=== PATIENT | female | born 1990 | race Caucasian/White ===

== ENCOUNTER 2022-01-24 19:36 | Inpatient (IN) ==
[2022-01-24] MEDS ORDERED: OXYTOCIN 30 UNITS/500 ML BAG IV PRN ×2 (19:48)
[2022-01-24] MEDS ORDERED: PENICILLIN G POTASSIUM 6 MU in DEXTROSE 5% 250 ML IV ONE (20:00)
--- NOTE | 2022-01-24 20:06 | History & Physical Report ---
Date of Service January 24, 2022 Assessment & Plan (1) Insulin controlled gestational diabetes mellitus (GDM) during : Plan: Admit to L&D. Will place on EFM/toco. OK to ambulate, if no active ctx will recommend begin pitocin. Penicillin for GBS+, patient with 2 siblings with an unknown reaction to PCN, patient herself has never had a reaction to PCN. Agreeable to use this, as it is the recommended treatment for GBS+. Check glucose now, then hourly when in active labor. (2) Supervision of normal intrauterine in primigravida: History of Present Illness Chief Complaint: rupture of membranes Primary Care Provider: Aj Arnold, DO 31yo @ 38 [birth year], presented to office today after gush of clear fluid at 4:15p. +FM, no vaginal bleeding. No reg ctx. Examined by Dr Henderson in office, found to be grossly ruptured. /-2. Obesity (BMI 40 and higher @ beginning of ) *Growth US @ 32wks *Weekly NSTs @ 34wks Covid Vaccine #1 08/29/20 (Pfizer) Covid Vaccine #2 09/19/20 Has had booster Flu shot given 07/11/21 SB GDM on insulin *Wkly NSTs @32wks and Twice wkly @36wks *Serial growth US @28wks *Deliver by EDC - IOL 02/06 GBS Positive *treat in labor Allergies Allergy/AdvReac Type Severity Reaction Status Date / Time ibuprofen Allergy Unknown throat Verified 01/24/22 16:52 swelling Home Medications Medication Instructions Recorded Confirmed Type vits no.130-ferrous fum 1 tab PO DAILY #30 tab 10/01/20 01/24/22 Rx 27 mg iron-folic acid 800 mcg tablet ( Vitamin) acetone (urine) test (Ketone Urine #50 ea 12/05/21 01/24/22 Rx Test) insulin NPH isoph U-100 human 100 8 unit SUBCUT .at bed time #15 ml 12/05/21 01/24/22 Rx unit/mL (3 mL) subcutaneous pen (Novolin N Flexpen) pen needle, diabetic 32 gauge x #100 ea 12/05/21 01/24/22 Rx 5/32" (BD Ultra-Fine Clemencia Pen Needle) Patient History Medical History Dyspareunia Malpositioned IUD Migraine Surgical History No pertinent past surgical history Family History Mother Ovarian cancer Diabetes Aunt Diabetes Grandmother (Maternal) Diabetes Osteoporosis Stroke Sister Hypertension Denies family history of Prostate cancer Myocardial infarction Breast cancer Colorectal cancer Social History Smoking Status: Never smoker Second Hand Exposure: No; Hx Alcohol Use: No Hx Substance Use: No Preferred Language: Wolof Visual Impairment: No Limitations Hearing Ability: Normal marital status: marital status details: Joby (31) [phone] Current Living Situation: Spouse Current Living Situation Comment: lives with spouse, 2 dogs, 1 cat, spouse to change litter. 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 How many Children do You have: 0 Feels Safe at Home: Yes Childhood Exposure to Second-Hand Smoke: No caffeine: Yes Dental Care, Regularly: Yes Physical Activity Frequency: 3-4 Times per Week Seatbelt Use: always Sunscreen Use: Yes Review of Systems All systems reviewed & are unremarkable except as noted in HPI & below Physical Exam Physical Exam: FHT/toco - not yet on monitor SVE 2/50/-3, soft/mid, EFW 7-8 Constitutional: WD/WN, vitals as above Respiratory: normal respiratory effort, lungs clear to auscultation no respiratory distress Cardiovascular: Rate/Rhythm: regular rate and regular rhythm Gastrointestinal (Abdomen): Inspection/Auscultation: abdomen normal to inspection Percussion/Palpation: abdomen soft; abdomen nontender Gravid. No s/s chorio or abruption. Skin: no rashes, warm and dry Psychiatric: A+Ox3, euthymic affect Coding Level of Care Code None Diagnoses Insulin controlled gestational diabetes mellitus (GDM) during O24.414 Supervision of normal intrauterine in primigravida Z34.00
[2022-01-24 20:19] LABS: Hematocrit (blood only) 38.9 % (37-47); Hemoglobin 13.4 g/dL (12.0-16.0); Mean Corpuscular Hemoglobin 27.8 pg (25-34); Mean Corpuscular Hgb Conc 34.4 g/dL (32-36); Mean Corpuscular Volume 80.7 fL (80-100); Mean Platelet Volume 8.9 fL (7.4-10.4); Platelet Count 392 K/uL (130-400); RDW Coefficient of Variation 14.2 % (11.5-14.5); RDW Standard Deviation 41.6 fL (36.4-46.3); Red Blood Count 4.82 M/uL (4.2-5.4); White Blood Count 11.51 K/uL (4.8-10.8)
[2022-01-25] MEDS: PENICILLIN G POTASSIUM 3 MU in DEXTROSE 5% 100 ML IV PRN ×5 (00:54→17:03)
[2022-01-25] MEDS: LACTATED RINGER'S 1,000 ML IV PRN ×3 (00:59→15:33)
--- NOTE | 2022-01-25 03:17 | Labor Progress Brief Note ---
Date of Service January 25, 2022 Subjective Patient had been on pitocin as soon as nursing staffing levels allowed safe administration of pit (approx midnight). Then heart decel at approx 2:30 and pitocin turned off to allow for resuscitation. Baby has recovered fully, with FHT Cat 1. Will restart pitocin at this time. Patient is uncomfortable, has "the shakes" and vomited. Having pain with ctx. Cervical exam was very painful. Discussed possibility of epidural to allow pelvis to relax and obtain pain control. SVE 2/50/-3. Exam challenging - very painful. Nursing voiced concern re: position, seemed to be high on abdomen. I performed limited bedside ultrasound, fetus is cephalic. Will restart pitocin, patient will consider epidural. Assessment & Plan Admission and Anticipated Discharge Date Admission Date: January 24, 2022 Results & Data ([facility]) Vital Signs (Past 12 Hours) Vital Signs Temp Pulse Resp BP Pulse Ox 01/25/22 03:09 83 98 01/25/22 03:04 93 H 98 01/25/22 02:59 71 96 01/25/22 02:54 80 97 01/25/22 02:49 76 97 01/25/22 02:44 78 98 01/25/22 02:39 95 H 97 01/25/22 02:34 94 H 97 01/25/22 02:30 129 H 142/93 H 01/25/22 01:31 36.4 C L 18 01/25/22 01:30 85 159/89 H 01/24/22 23:57 36.7 C 18 01/24/22 21:47 80 137/81 01/24/22 20:45 92 H 147/93 H 01/24/22 20:44 98 H 147/91 H 01/24/22 20:35 93 H 147/84 H 01/24/22 20:16 36.8 C 18 Coding Level of Care Code None
[2022-01-25] MEDS ORDERED: ePHEDrine sulfate 50 MG/ML AMP ONE (03:43)
[2022-01-25] MEDS ORDERED: fentaNYL citrate 100 MCG/2 ML VIAL ONE (03:44)
[2022-01-25] MEDS ORDERED: fentaNYL 2MCG/ML ROPIVACAINE 1.25MG/ML 100 ML BAG EPI ONE (03:44)
[2022-01-25] MEDS ORDERED: BUPIVACAINE 0.25% 30 ML VIAL ONE (03:44)
[2022-01-25] MEDS ORDERED: SODIUM CHLORIDE 0.9% INJ 10 ML VIAL ONE (03:44)
[2022-01-25] MEDS ORDERED: ONDANSETRON INJ 2 MG/ML 2 ML VIAL IV PRN (04:43)
[2022-01-25] MEDS ORDERED: NALOXONE HCL 0.4 MG/1 ML VIAL/CARP IV PRN (04:43)
[2022-01-25] MEDS ORDERED: ePHEDrine sulfate 50 MG/ML AMP IV PRN (04:43)
[2022-01-25] MEDS ORDERED: diphenhydrAMINE 50 MG/ML VIAL IV PRN (04:43)
[2022-01-25] MEDS ORDERED: NALOXONE HCL 1 MG in SODIUM CHLORIDE 0.9% 1000ML 1,000 ML IV PRN (04:43)
[2022-01-25] MEDS ORDERED: NALBUPHINE HCL INJ 10 MG/ML AMP IV PRN (04:43)
--- NOTE | 2022-01-25 04:45 | Anesthesiology Consultation ---
Date of Service January 25, 2022 Assessment & Plan (1) Encounter for pre-operative examination: Chart Review Chart Review: Patient NOT seen in Pre Admission Testing and Acceptable Risk for Labor Epidural Consults Requested none History Height/Weight Height: 5 ft 3 in Weight: 104.668 kg Allergies Allergy/AdvReac Type Severity Reaction Status Date / Time ibuprofen Allergy Unknown throat Verified 01/24/22 16:52 swelling shellfish derived Allergy Rash Verified 01/25/22 04:21 Medications Home Medications Medication Instructions Recorded Confirmed Last Taken vits no.130-ferrous fum 1 tab PO DAILY #30 tab 10/01/20 01/24/22 Unknown 27 mg iron-folic acid 800 mcg tablet ( Vitamin) acetone (urine) test (Ketone Urine #50 ea 12/05/21 01/24/22 Unknown Test) insulin NPH isoph U-100 human 100 8 unit SUBCUT .at bed time #15 ml 12/05/21 01/24/22 01/24/22 unit/mL (3 mL) subcutaneous pen 2300 (Novolin N Flexpen) pen needle, diabetic 32 gauge x #100 ea 12/05/21 01/24/22 Unknown 32" (BD Ultra-Fine Clemencia Pen Needle) Active Medications Generic Name Dose Route Start Last Admin Trade Name Freq PRN Reason Stop Dose Admin Oxytocin 30 units in 500 mls @ 3 mls/hr 01/24/22 19:48 01/25/22 04:00 Pitocin IV 01/26/22 19:47 0.18 units/hr .Q24H PRN 3 mls/hr Labor Induction/Augmentation Titration Protocol 0.18 UNITS/HR Lactated Ringer's 1,000 mls @ 125 mls/hr 01/24/22 19:48 01/25/22 04:47 Lr IV 01/26/22 19:47 125 mls/hr .Q8H PRN Administration L&D Protocol Protocol Penicillin G Potassium 3 mu/ 106 mls @ 100 mls/hr 01/24/22 22:48 01/25/22 04:52 Dextrose IV 02/03/22 22:47 100 mls/hr Q4H PRN Administration GBS(+) Until Delivery Past Medical History Medical History Dyspareunia Malpositioned IUD Migraine Past Family History Family History Mother Ovarian cancer Diabetes Aunt Diabetes Grandmother (Maternal) Diabetes Osteoporosis Stroke Sister Hypertension Denies family history of Prostate cancer Myocardial infarction Breast cancer Colorectal cancer Past Surgical History Surgical History No pertinent past surgical history Past Anesthesia History No Hx of Anesthesia Complications and No Family Hx of Anesthesia Complications History of PONV No Hx of PONV and No Hx of Motion Sickness Social History Smoking Status: Never smoker Hx Alcohol Use: No Alcohol type: beer, wine and hard liquor Hx Substance Use: No substance use type: does not use Physical Exam Vital Signs Last Vital Signs Temp 37.0 C 01/25/22 03:31 Pulse 97 H 01/25/22 05:11 Resp 18 01/25/22 01:31 BP 136/75 01/25/22 05:11 Pulse Ox 94 01/25/22 05:10 Testing Laboratory Results 01/24/22 20:02 01/24/22 20:32 POC Glucose 102 H
[2022-01-25] MEDS: fentaNYL 2MCG/ML ROPIVACAINE 1.25MG/ML 100 ML BAG EPI PRN ×2 (12:05→17:19)
[2022-01-25] MEDS ORDERED: D5W AND LACTATED RINGERS 1,000 ML IV SCH (16:00)
[2022-01-25] MEDS ORDERED: NURSING L&D Epidural Breakthrough Pain Update ONE (16:43)
--- NOTE | 2022-01-25 17:57 | Delivery Summary ---
Vaginal Delivery Summary Date of Service January 25, 2022 Vaginal Delivery Summary Patient had been induced by Dr. Ferguson the night before for spontaneous rupture of membranes she initially had slow progression an IUPC was placed and then she rapidly progressed from 2 cm to fully dilated with Pitocin. States she pushed she delivered a baby girl live vigorous female infant in occiput anterior position at of the head the loose nuchal cord was passed over the head and fluid was clear gentle traction the baby with no excessive force live vigorous female cord clamped and cut cord gases obtained cord blood obtained placenta removed with gentle traction IV Pitocin started second-degree tear repaired with 3-0 Vicryl sponge and instrument counts correct estimated blood loss 250 mL
--- NOTE | 2022-01-25 18:01 | Anesthesia Procedure Note ---
Date of Service January 25, 2022 Anesthesia Post Epidural Note Vital Signs Vital Signs: Temp Pulse Resp BP Pulse Ox 37.0 C 100 H 16 137/88 97 01/25/22 15:17 01/25/22 17:55 01/25/22 16:46 01/25/22 17:55 01/25/22 17:40 Pain Intensity Bilateral Abdomen: Pain Intensity: 3 Notes Mental Status: alert / awake / arousable and participated in evaluation Nausea / Vomiting: adequately controlled Pain: adequately controlled Airway Patency, RR, SpO2: stable & adequate BP & HR: stable & adequate Hydration State: stable & adequate Neuraxial Anesthesia: was administered and sensory block is resolving Anesthetic Complications: no major complications apparent Epidural: Removed without complications and With tip intact
[2022-01-25 18:12] LABS: Base Excess Cord Arterial Bld -3.4 mEq/L (-9-1.8); CO2 Cord Arterial Blood 49 mmHg (39.1-73.5); Cord Venous Blood HCO3 20 mmol/L (18.4-26.8); Cord Venous Blood PCO2 31 mmHg (30.4-57.2); Cord Venous Blood PO2 40 mmHg (14.1-43.3); Cord Venous Blood pH 7.41 (7.20-7.44); HCO3 Cord Arterial Blood 24 mmol/L (19.7-28.5); O2 Saturation Cord Venous Bld 78.8 % (<68); Oxygen Sat Cord Arterial Blood < 60.0 % (<60); PO2 Cord Arterial Blood 19 mmHg (4.1-31.7); pH Cord Arterial Blood 7.29 (7.1-7.38)
[2022-01-25] MEDS ORDERED: bisacodyL 10 MG SUPP PR PRN (18:43)
[2022-01-25] MEDS ORDERED: oxyCODONE/ACETAMINOPHEN 5mg/325mg TAB PO PRN (18:43)
[2022-01-25] MEDS ORDERED: HYDROCORTISONE ACETATE 25 MG SUPP PR PRN (18:43)
[2022-01-25] MEDS ORDERED: IBUPROFEN 600 MG TAB PO PRN (18:43)
[2022-01-25] MEDS ORDERED: OXYTOCIN 30 UNITS/500 ML BAG IV PRN (18:43)
[2022-01-25] MEDS ORDERED: BENZOCAINE 20% AER SPR 82.5 GM CAN EXT PRN (18:43)
[2022-01-25] MEDS ORDERED: DIPHTHERIA/TETANUS/PERTUSSIS 0.5 ML SYR/VIAL IM ONE (18:43)
[2022-01-25] MEDS: DOCUSATE SODIUM 100 MG CAP PO SCH (22:00)
[2022-01-25] MEDS: ACETAMINOPHEN 325 MG TAB PO PRN (22:00)
[2022-01-26] MEDS: DOCUSATE SODIUM 100 MG CAP PO SCH ×3 (01:29→20:38)
[2022-01-26] MEDS: ACETAMINOPHEN 325 MG TAB PO PRN ×5 (04:36→23:14)
[2022-01-26 08:08] LABS: Hematocrit (blood only) 32.2 % (37-47); Hemoglobin 10.9 g/dL (12.0-16.0); Mean Corpuscular Hemoglobin 27.3 pg (25-34); Mean Corpuscular Hgb Conc 33.9 g/dL (32-36); Mean Corpuscular Volume 80.5 fL (80-100); Platelet Count 299 K/uL (130-400); RDW Coefficient of Variation 14.3 % (11.5-14.5); RDW Standard Deviation 41.9 fL (36.4-46.3); White Blood Count 18.94 K/uL (4.8-10.8)
--- NOTE | 2022-01-26 08:41 | Obstetrical Progress Note ---
Date of Service January 26, 2022 Assessment & Plan (1) Encounter for pre-operative examination: ppd 1, ccc Subjective Ambulation: ambulating normally Voiding: no voiding problems Diet Tolerance:: regular diet Lochia:: Small Results & Data ([facility]) Vital Signs (Past 12 Hours) Vital Signs Temp Pulse Resp BP Pulse Ox 01/26/22 04:10 98.2 F 67 16 126/80 94 01/25/22 22:00 98.2 F 93 H 16 117/82 95
[2022-01-26] MEDS: PRENATAL VITAMIN 1 TAB PO SCH (08:53)
[2022-01-26] MEDS ORDERED: bisacodyL 5 MG TABEC PO SCH (20:00)
[2022-01-27 07:07] LABS: Hematocrit (blood only) 30.2 % (37-47); Hemoglobin 10.1 g/dL (12.0-16.0)
--- NOTE | 2022-01-27 07:16 | Obstetrical Progress Note ---
Date of Service January 27, 2022 Assessment & Plan (1) Carrier of group B Streptococcus: PPD 1, home Subjective Ambulation: ambulating normally Voiding: no voiding problems Passing Gas:: Yes Diet Tolerance:: regular diet Lochia:: Small Results & Data ([facility]) Vital Signs (Past 12 Hours) Vital Signs Temp Pulse Resp BP Pulse Ox 01/26/22 23:14 138/85 01/26/22 23:00 98.1 F 72 16 146/84 H 97 01/26/22 20:30 98.4 F 75 16 134/84 96
[2022-01-27] MEDS: PRENATAL VITAMIN 1 TAB PO SCH (08:56)
[2022-01-27] MEDS: ACETAMINOPHEN 325 MG TAB PO PRN ×2 (08:56→12:39)
[2022-01-27] MEDS: DOCUSATE SODIUM 100 MG CAP PO SCH (08:56)
== END 2022-01-27 13:10 | disposition home or self-care (01) | DRG 807 ==
LOC: OPB 19:36 → 4S1 19:38 → 4E2 01-25 21:25

== ENCOUNTER 2023-11-27 15:12 | Inpatient (IN) ==
[2023-11-27] MEDS ORDERED: LIDOCAINE 1% LOCAL 20 ML VIAL INFIL PRN (16:00)
[2023-11-27 16:08] VITALS: RESP 18
--- NOTE | 2023-11-27 16:12 | History & Physical Report ---
Date of Service November 27, 2023 Assessment & Plan (1) Encounter for induction of labor: Plan: Intrauterine at 38+ weeks with confirmed rupture of membranes. Will begin Pitocin induction of labor at this time per L&D protocol. Check BSG's every 2 hours because of GDM on insulin diagnosis. Epidural when requested. Anticipate vaginal . History of Present Illness Primary Care Provider: Aj Arnold DO Patient is a 33-year-old 2 para 1-0-0-1 female EDC 12/07/2023 who presents with spontaneous rupture membranes for clear fluid at 145 this aftern oon. Since then, she has had no contractions. Rupture membranes were confirmed at the office prior to her admission here in labor and delivery. GBS negative. has been complicated by morbid obesity, GDM on insulin, and umbilical varix. Growth scans have been within the normal limits and normal testing has been reassuring. Allergies Allergy/AdvReac Type Severity Reaction Status Date / Time shellfish derived Allergy Intermediate Rash Verified 11/27/23 15:31 ibuprofen Allergy Unknown throat Verified 11/27/23 14:38 swelling Home Medications Medication Instructions Recorded Confirmed Type [id number] 1 tab PO DAILY 04/20/23 11/27/23 History [] acetone (urine) test (Ketone Urine #50 ea 05/22/23 11/27/23 Rx Test strips) blood sugar diagnostic (OneTouch #150 ea 05/22/23 11/27/23 Rx Verio test strips) blood-glucose meter (OneTouch #1 ea 05/22/23 11/27/23 Rx Verio Reflect Meter) lancets 33 gauge (OneTouch Delica #150 ea 05/22/23 11/27/23 Rx Plus Lancet) blood-glucose sensor (FreeStyle #2 ea 07/10/23 11/27/23 Rx Stephy 3 Sensor device) Robitussin Allergy-Cough 20 ml PO BID PRN Cough 11/27/23 11/27/23 History Tylenol 650 mg PO Q8H PRN Headache 11/27/23 11/27/23 History Patient History Medical History (Updated 11/27/23 @ 16:10 by Mary Ellen Cintron MD, FACOG) Insulin controlled gestational diabetes mellitus (GDM) during Dyspareunia Migraine Malpositioned IUD Surgical History No pertinent past surgical history Family History Mother Ovarian cancer Diabetes Aunt Diabetes Grandmother (Maternal) Diabetes Osteoporosis Stroke Sister Hypertension Denies family history of Prostate cancer Myocardial infarction Breast cancer Colorectal cancer Social History (Updated 04/20/23 @ 09:57 by Mitzy Conte RN) Smoking Status: Never smoker Second Hand Exposure: No; Do You Dip or Chew Tobacco: No; Hx Alcohol Use: No Hx Substance Use: No Preferred Language: Bahraini Communication Ability: Effective Visual Impairment: No Limitations Hearing Ability: Normal Baton Teacher Required: No Beliefs That Will Affect Care: None marital status: marital status details: Joby (31) [phone] Current Living Situation: Family Current Living Situation Comment: lives with spouse, 1 daughter, 2 dogs, 1 cat, spouse change litter. 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 [employer] How many Children do You have: 0 Feels Safe at Home: Yes Childhood Exposure to Second-Hand Smoke: No caffeine: Yes Dental Care, Regularly: Yes Physical Activity Frequency: 3-4 Times per Week Seatbelt Use: always Sunscreen Use: Yes Assistive Devices: None Review of Systems All systems reviewed & are unremarkable except as noted in HPI & below Physical Exam Constitutional: WD/WN, vitals as above Psychiatric: A+Ox3, euthymic affect Genitourinary: OB Exam Abdomen: + vertex and + estimated weight (7-8 pounds); no irregular contractions Manual OB Exam: + cervical dilation (2cm), + cervical effacement 50%, + station -2 (posterior) and + amniotic fluid clear Results & Data Vital Signs (Past 12 Hours) Vital Signs Pulse BP 11/27/23 15:27 100 H 123/81 Code Status & VTE Plan VTE Prophylaxis Plan VTE Prophylaxis will be ordered: No Coding Level of Care Code None Diagnoses Encounter for induction of labor Z34.90
[2023-11-27 16:47] LABS: Hematocrit (blood only) 35.7 % (37.0-47.0); Hemoglobin 11.5 g/dl (12.0-16.0); Mean Corpuscular Hemoglobin 24.5 pg (25.0-34.0); Mean Corpuscular Hgb Conc 32.2 g/dL (32.0-36.0); Mean Platelet Volume 9.6 fL (9.4-12.4); Platelet Count 330 K/uL (130-400); RDW Coefficient of Variation 16.3 % (11.5-14.5); RDW Standard Deviation 44.1 fL (36.4-46.3); White Blood Count 8.95 K/ul (4.8-10.8)
[2023-11-27] MEDS: LACTATED RINGER'S 1,000 ML IV PRN (20:00)
[2023-11-27] MEDS: OXYTOCIN 30 UNITS/NSS 30 UNITS/500 ML BAG IV PRN (20:05)
[2023-11-27] MEDS ORDERED: ePHEDrine sulfate 50 MG/ML AMP ONE (20:14)
[2023-11-27] MEDS: fentANYL 2 MCG/ML BUPIVacaine 0.125%-NSS 100ML BAG ONE (21:24)
[2023-11-27] MEDS: LIDOCAINE 2%/EPINEPHRINE 1:200,000 20 ML PF ONE (21:25)
[2023-11-27] MEDS: BUPIVACAINE 0.25% PF 30 ML VIAL ONE (21:25)
--- NOTE | 2023-11-27 21:38 | Anesthesiology Consultation ---
Date of Service November 27, 2023 Assessment & Plan Chart Review Chart Review: Acceptable Risk for Labor Epidural Consults Requested none History Height/Weight Height: 5 ft 3 in Weight: 101.437 kg Allergies Allergy/AdvReac Type Severity Reaction Status Date / Time shellfish derived Allergy Intermediate Rash Verified 11/27/23 15:31 ibuprofen Allergy Unknown throat Verified 11/27/23 14:38 swelling Medications Home Medications Medication Instructions Recorded Confirmed Last Taken [id number] 1 tab PO DAILY 04/20/23 11/27/23 11/26/23 20:30 [] acetone (urine) test (Ketone Urine #50 ea 05/22/23 11/27/23 Unknown Test strips) blood sugar diagnostic (OneTouch #150 ea 05/22/23 11/27/23 Unknown Verio test strips) blood-glucose meter (OneTouch #1 ea 05/22/23 11/27/23 Unknown Verio Reflect Meter) lancets 33 gauge (OneTouch Delica #150 ea 05/22/23 11/27/23 Unknown Plus Lancet) blood-glucose sensor (FreeStyle #2 ea 07/10/23 11/27/23 Unknown Stephy 3 Sensor device) Robitussin Allergy-Cough 20 ml PO BID PRN Cough 11/27/23 11/27/23 11/27/23 02:30 Tylenol 650 mg PO Q8H PRN Headache 11/27/23 11/27/23 11/27/23 11:00 Active Medications Generic Name Dose Route Start Last Admin Trade Name Freq PRN Reason Stop Dose Admin Lactated Ringer's 1,000 mls @ 125 mls/hr 11/27/23 16:00 11/27/23 21:19 Lr IV 11/29/23 15:59 125 mls/hr .Q8H PRN Infusion L&D Protocol Protocol Oxytocin 30 units in 500 mls @ 3 mls/hr 11/27/23 16:02 11/27/23 20:45 Pitocin 30 Units/Nss IV 11/29/23 16:01 0.18 units/hr .Q24H PRN 3 mls/hr Labor Induction/Augmentation Titration Protocol 0.18 UNITS/HR Past Medical History Medical History (Updated 11/27/23 @ 18:59 by Jade Aguilar RN) Gestational diabetes mellitus (GDM) Diet Dyspareunia Migraine Malpositioned IUD Past Family History Family History Mother Ovarian cancer Diabetes Aunt Diabetes Grandmother (Maternal) Diabetes Osteoporosis Stroke Sister Hypertension Denies family history of Prostate cancer Myocardial infarction Breast cancer Colorectal cancer Past Surgical History Surgical History No pertinent past surgical history Social History Smoking Status: Never smoker Do You Dip or Chew Tobacco: No Hx Alcohol Use: No Alcohol type: beer, wine and hard liquor Hx Substance Use: No substance use type: does not use Physical Exam Vital Signs Last Vital Signs Temp 36.5 C 11/27/23 21:30 Pulse 88 11/27/23 21:35 Resp 18 11/27/23 21:30 BP 121/63 11/27/23 21:35 Pulse Ox 96 11/27/23 21:35 Testing Laboratory Results 11/27/23 16:08 11/27/23 11/27/23 17:24 16:48 POC Glucose 81 66 L*
[2023-11-27] MEDS ORDERED: NALOXONE HCL 1 MG in SODIUM CHLORIDE 0.9% 1,000 ML IV PRN (21:40)
[2023-11-27] MEDS ORDERED: NALOXONE HCL 0.4 MG/1 ML VIAL/CARP IV PRN (21:40)
[2023-11-27] MEDS ORDERED: SODIUM CHLORIDE 0.9% PF INJ 10 ML VIAL EPI STA (21:40)
[2023-11-27] MEDS ORDERED: fentANYL 2 MCG/ML BUPIVacaine 0.125%-NSS 100ML BAG EPI PRN (21:40)
[2023-11-27] MEDS ORDERED: BUPIVACAINE 0.25% PF 30 ML VIAL EPI PRN (21:40)
[2023-11-27] MEDS ORDERED: ePHEDrine sulfate 50 MG/ML AMP IV PRN (21:40)
[2023-11-27] MEDS ORDERED: fentaNYL citrate PF 100 MCG/2 ML VIAL EPI STA (21:40)
[2023-11-27] MEDS ORDERED: ROPIVACAINE 0.5% PF 5 MG/ML 20 ML VIAL EPI PRN (21:40)
[2023-11-27] MEDS ORDERED: NALBUPHINE HCL 5 MG in SYRINGE 0 ML IV PRN (21:40)
[2023-11-27] MEDS ORDERED: LIDOCAINE 2% MPF LOCAL 5 ML VIAL EPI PRN (21:40)
[2023-11-27] MEDS ORDERED: diphenhydrAMINE 50 MG/ML VIAL IV PRN (21:40)
[2023-11-27] MEDS ORDERED: BUPIVACAINE 0.25% PF 30 ML VIAL EPI STA (21:40)
[2023-11-27] MEDS ORDERED: fentaNYL citrate PF 100 MCG/2 ML VIAL EPI PRN (21:40)
[2023-11-27] MEDS ORDERED: LIDOCAINE 2%/EPINEPHRINE 1:200,000 20 ML PF EPI STA (21:40)
[2023-11-27] MEDS ORDERED: SODIUM CHLORIDE 0.9% PF INJ 10 ML VIAL EPI PRN (21:40)
[2023-11-27] MEDS: fentaNYL citrate PF 100 MCG/2 ML VIAL ONE (22:17)
[2023-11-27] MEDS: SODIUM CHLORIDE 0.9% PF INJ 10 ML VIAL ONE (22:17)
[2023-11-28] MEDS ORDERED: bisacodyL 10 MG SUPP PR PRN (02:04)
[2023-11-28] MEDS ORDERED: DIPHTHER/TETAN/PERTUS Vaccine (Tdap, Adol/Adult) 0.5mL IM ONE (02:04)
[2023-11-28] MEDS ORDERED: HYDROCORTISONE ACETATE 25 MG SUPP PR PRN (02:04)
[2023-11-28] MEDS ORDERED: OXYTOCIN 30 UNITS/NSS 30 UNITS/500 ML BAG IV PRN (02:04)
[2023-11-28] MEDS ORDERED: IBUPROFEN 600 MG TAB PO PRN (02:04)
[2023-11-28] MEDS ORDERED: oxyCODONE/ACETAMINOPHEN 5mg/325mg TAB PO PRN (02:04)
--- NOTE | 2023-11-28 02:15 | Delivery Summary ---
Vaginal Delivery Summary Date of Service November 28, 2023 Vaginal Delivery Summary and 2nd Degree LAC Patient is a 33-year-old 2 para 1-0-0-1 female who presents at 38-5/7 weeks with spontaneous rupture of membranes. Pitocin induction was begun because spontaneous labor did not ensue. She received effective epidural analgesia. She progressed to full dilation and pushed effectively over intact perineum for delivery of a viable female infant. There was a nuchal cord x 2 which was loose and reduced prior to delivering the shoulders. The rest the infant delivered easily and was placed on mother's abdomen for further attention and drying. She was vigorous crying and moving all 4 limbs. After cord blood was obtained, placenta was expressed intact with a three-vessel cord. Second- degree perineal laceration was repaired with 3-0 chromic in the usual fashion. QBL is 530 cc. Mother and infant are doing well after delivery. [facility] Vaginal Delivery Charge Delivery Type Details: and 2nd Degree LAC
[2023-11-28] MEDS: OXYTOCIN 30 UNITS/NSS 30 UNITS/500 ML BAG IV PRN (02:51)
--- NOTE | 2023-11-28 04:21 | Anesthesia Procedure Note ---
Date of Service November 28, 2023 Anesthesia Post Epidural Note Vital Signs Vital Signs: Temp Pulse Resp BP Pulse Ox 37.0 C 72 18 139/71 98 11/28/23 00:54 11/28/23 04:08 11/28/23 00:54 11/28/23 04:08 11/28/23 02:00 Notes Mental Status: alert / awake / arousable Nausea / Vomiting: adequately controlled Pain: adequately controlled Airway Patency, RR, SpO2: stable & adequate BP & HR: stable & adequate Hydration State: stable & adequate Neuraxial Anesthesia: was administered and sensory block is resolving Anesthetic Complications: no major complications apparent and Pt Satisfied with anesthetic care Epidural: Removed without complications and With tip intact
[2023-11-28] MEDS: BENZOCAINE 20% SPRY 85 APPLN/85 GM CAN EXT PRN (04:37)
[2023-11-28] MEDS: ACETAMINOPHEN 325 MG TAB PO PRN (04:44)
[2023-11-28] MEDS: DOCUSATE SODIUM 100 MG CAP PO SCH (09:49)
[2023-11-28] MEDS: PRENATAL VITAMIN 1 TAB PO SCH (09:49)
[2023-11-29 06:43] LABS: Hematocrit (blood only) 30.1 % (37.0-47.0); Hemoglobin 9.8 g/dl (12.0-16.0); Mean Corpuscular Hemoglobin 25.4 pg (25.0-34.0); Mean Corpuscular Hgb Conc 32.6 g/dL (32.0-36.0); Mean Platelet Volume 9.4 fL (9.4-12.4); Platelet Count 262 K/uL (130-400); RDW Coefficient of Variation 16.7 % (11.5-14.5); RDW Standard Deviation 45.5 fL (36.4-46.3); Red Blood Count 3.86 M/uL (4.20-5.40); White Blood Count 12.61 K/ul (4.8-10.8)
--- NOTE | 2023-11-29 08:32 | Obstetrical Progress Note ---
Date of Service November 29, 2023 Assessment & Plan (1) Encounter for care and examination after delivery: Day 1 status post vaginal delivery. Doing well. Stable for discharge if preferred. Subjective Ambulation: ambulating normally Voiding: no voiding problems Passing Gas:: Yes Diet Tolerance:: regular diet Lochia:: Moderate Feeding Type:: breast feeding Physical Exam Constitutional WD/WN, vitals as above Respiratory normal respiratory effort; no respiratory distress and no labored breathing Gastrointestinal (Abdomen) Inspection/Auscultation: abdomen normal to inspection; abdomen not distended Percussion/Palpation: abdomen soft; abdomen nontender, no guarding and abdomen not rigid Genitourinary OB Exam Abdomen: + fundal height Fundus: + firm and + relation to umbilicus (Below); not tender or not boggy
[2023-11-29 09:12] VITALS: PULSE 83; TEMP 97.3; O2SAT 96
[2023-11-29 09:17] VITALS: BP 122/74
[2023-11-29] MEDS ORDERED: bisacodyL 5 MG TABEC PO SCH (20:00)
== END 2023-11-29 11:15 | disposition home or self-care (01) | DRG 807 ==
LOC: OPB 15:12 → 4S1 15:17 → 4E2 11-28 08:27